=== PATIENT | female | born 1995 | race Caucasian/White ===

== ENCOUNTER 2018-04-24 18:16 | Emergency (ER) | payer MEDICAID ==
[~2018-04-24] VITALS: Ht 162.6 cm; Wt 131.5 kg
[2018-04-24 18:22] VITALS: BP 153/97
== END 2018-04-24 19:24 | disposition home or self-care (01) ==
LOC: ED 18:55
DX: M79.622 Pain in left upper arm (principal); E03.9 Hypothyroidism, unspecified; R20.0 Anesthesia of skin; R20.2 Paresthesia of skin
CPT/HCPCS: 99281